=== PATIENT | female | born 1990 | race Two or more races ===

== ENCOUNTER 2016-05-01 18:55 | Emergency (ER) | payer SELFPAY ==
[~2016-05-01] VITALS: Ht 162.6 cm; Wt 84.8 kg
[2016-05-01 19:30] VITALS: BP 143/88
[2016-05-01 20:27] LABS: Urine Bilirubin Negative (Negative); Urine Blood TRACE /uL (Negative); Urine Color Yellow (Yellow); Urine Glucose Normal (Normal); Urine Ketone Negative (Negative); Urine Nitrite Negative (Negative); Urine RBC 8 /hpf (0 - 4); Urine Squamous Epithelial Cell MOD /hpf (<5); Urine Urobilinogen Normal (Negative)
== END 2016-05-02 04:15 | disposition left against medical advice (07) ==
LOC: ER 19:08
DX: M79.605 Pain in left leg (principal); Z53.21 Procedure and treatment not carried out due to patient leaving prior to being seen by health care provider
CPT/HCPCS: 73562; 73610; 73630; 81001; 81025